=== PATIENT | female | born 1960 | race Caucasian/White ===

== ENCOUNTER → 2018-04-04 18:32 | Outpatient (CLI) | payer OTHER, SELFPAY ==
--- NOTE | 2018-04-04 | EMB_PTH ---
PATIENT: FLORIAN MARINELLI LOC: [facility] U#:[id number] AGE/SX: 65/F ROOM: RE04/04/[address]: Dr. Florentin Bundy MD : 1960 BED: DIS: SPEC #: [id number] RECD: 04/04/18 15:25 STATUS: ERICK KIESHA #: [id number] NICOLAS: 04/04/18 00:[address]: Florentin Bundy DEPT: SURGICAL PATHOLOGY RECD BY: Varun Hull Tissues: Endometrium, NOS Procedures: Surgery Specimen Level IV HEADER OPERATION: Endometrial biopsy PRE-OP DIAGNOSIS: Postmenopausal bleeding TISSUE SUBMITTED: Endometrial biopsy MICROSCOPIC DIAGNOSIS Endometrial biopsy: Strips of benign endometrial epithelium and superficial fragments of inactive endometrium consistent with atrophic endometrium, blood and mucous. SJ:don 04/06/18 COMMENT Clinical correlation and appropriate follow up are necessary. MICROSCOPIC DESCRIPTION Slides are reviewed. GROSS DESCRIPTION Received in fixative is one container labeled with the patient's name and designated EM biopsy. The specimen consists of multiple fragments of hemorrhagic soft tissue mixed with mucoid tissue that in aggregate measure 3 x 2.5 x 0.3 cm. The specimen is totally submitted in one cassette. / SJ:don 04/05/18 TC:5 CPT: 81119
== END ==
PROVIDERS: Visit Provider Obstetrics & Gynecology
DX: N95.0 Postmenopausal bleeding (principal)
CPT/HCPCS: 88305

== ENCOUNTER → 2019-04-06 | Outpatient (CLI) | payer OTHER, SELFPAY ==
--- NOTE | 2019-04-06 12:00 | EMB_PTH ---
PATIENT: FLORIAN MARINELLI LOC: [facility] U#:[id number] AGE/SX: 59/F ROOM: RE04/06/[address]: Dr. Florentin Bundy MD : 1960 BED: DIS: 04/06/2019 SPEC #: [id number] RECD: 04/06/19 13:52 STATUS: ERICK KIESHA #: [id number] NICOLAS: 04/06/19 12:[address]: Florentin Bundy DEPT: SURGICAL PATHOLOGY RECD BY: Yosi Heaton Tissues: Endometrium, NOS Procedures: Surgery Specimen Level IV HEADER OPERATION: Endometrial biopsy PRE-OP DIAGNOSIS: N95.0 TISSUE SUBMITTED: Endometrial biopsy MICROSCOPIC DIAGNOSIS Endometrium, biopsy: Scant fragments of benign endometrium with tubal metaplasia and focal cystic change. No evidence of hyperplasia. AM:don 04/07/19 MICROSCOPIC DESCRIPTION Slides are reviewed. GROSS DESCRIPTION Received in fixative is one container labeled with the patient's name and designated EM biopsy. The specimen consists of a scant amount of hemorrhagic tissue measuring 0.3 x 0.3 x 0.1 cm. The specimen is totally submitted in one cassette. / SJ:rg 04/06/19 TC:5 [facility]: [id number]
== END | disposition home or self-care (01) ==
LOC: LABSPEC 13:12
PROVIDERS: Visit Provider Obstetrics & Gynecology
DX: N85.8 Other specified noninflammatory disorders of uterus (principal); N95.0 Postmenopausal bleeding
CPT/HCPCS: 88305

== ENCOUNTER 2019-07-10 05:39 | Day surgery (SDC) | payer OTHER, SELFPAY ==
[2019-06-29 11:33] LABS: Hematocrit 43.2 % (37-47); Hemoglobin 13.9 g/dL (12.0-15.0); Mean Corp Hgb Conc 32.2 g/dL (32-36); Mean Corpuscular Volume 90.2 fL (81-99); Mean Platelet Vol. 9.5 fl (6.2-12.0); Platelet Count 206 K/mm3 (150-450); RBC Distribution Width CV 12.1 % (11.6-14.6); RBC Distribution Width SD 40.3 fl (35.1-43.9); Red Blood Count 4.79 M/mm3 (4.2-5.4); White Blood Count 5.4 K/mm3 (4.4-11.0)
[2019-06-29 11:39] LABS: International Normalized Ratio 1.1; Prothrombin Time (Protime)PT. 14.3 SECONDS (11.7-14.9)
[2019-06-29 11:40] LABS: Partial Thromboplast Time 32.3 Seconds (24.1-36.2)
[2019-06-29 11:55] LABS: Creatinine, Serum 0.89 mg/dL (0.55-1.02); EST Glomerular Filtration Rate 69 mL/min (>60); Est Glom Filt Rate - Afr Amer 83 mL/min (>60)
--- NOTE | 2019-07-09 15:33 | PCM.HP.BLA ---
History and Physical Date of Admission: 07/10/19 Surgical History and Physical Rosalba Miller, a 59 year old female 3 0 1 0 3, presents for RAVH/BSO on July 10, 2019 at 7:30. -- BUSINESS DEVELOPMENT DIRECTOR Bleeding; Uterine Fibroids -- Started with low periodic pressure about 4-5 months ago, then with taking and using multiple hormones for therapy, she started bleeding and as long as she stays balanced with her hormones, she doesn't have bleeding. Bleeding x 2 weeks which began 03/04/19 bleeding started. Rosalba claims it started suddenly and has been present 2 weeks 2 days. It occurs intermittantly. It is located in the vagina. It is located in the lower abdomen. Rosalba characterizes the quality cramping. Rosalba characterizes the quality bleeding. Severity is moderate and not improving; Additional comments are: Known 4 cm fibroid; no bleeding for many months then heavy bleeding; off hormones now.; Additional comments are: EMBx benign. MEDICATIONS HISTORY: Patient is also takin. Xanax 0.5 mg tablet, One pill by mouth once a day at ALLERGIES: No Known Allergies Infections - Chicken pox and Measles Illnesses - allergies, asthma, Hypoglycemia, Insomnia and Accidents - None Hospitalizations - see surgery Review of Systems: GENERAL - Denies fever, or chills SKIN - Denies skin changes EYES - Denies visual changes EARS - Denies difficulty hearing NOSE - Denies nasal congestion or bleeding MOUTH - Denies sore throat or difficulty swallowing NECK - Denies pain or swelling RESPIRATORY - Denies shortness of breath or wheezing CARDIOVASCULAR - Denies palpitations or chest pain GASTROINTESTINAL - Denies nausea, vomiting, diarrhea, constipation GENITOURINARY - Denies dysuria, frequency of urination, incontinence of urine MUSCULOSKELETAL - Denies joint or muscle pain NEUROLOGICAL - Denies localized numbness or weakness PSYCHIATRIC - Denies depression or anxiety ENDOCRINE - Denies heat or cold intolerance, weight loss or gain HEMATO-IMMUNOLOGIC - Denies excesive bleeding with cuts SOCIAL HISTORY: Alcohol Use - occasionally Smoking - Never Diet - no special diet Lifestyle - moderate stress lifestyle and Exercise - active Seat Belt Use - always 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 10/19/1984 2. 03/23/1988 ; Dr. Langley 3. 05/12/1991 4. 2013 [place] Removed ; Fracisco Acharya PHYSICAL EXAM BP- 142/82 Sitting, Right arm, regular cuff Weight- 149.67836 lbs Height- 68 inch BMI:22.70 CONSTITUTIONAL - NAD, well nourished, and well developed SKIN - No rash, lesions, or ulcers HEENT - Normocephalic, PERRLA, EOMI NECK - No nodes, no nuchal rigidity and thyroid normal size and texture LYMPH NODES - Palpation of lymph nodes in neck and groins within normal limits LUNGS - CTA x2 without wheezes, crackles or rales CARDIAC - Regular rate and rhythm without rubs, murmurs, or gallops BREAST - No dominant masses, no tenderness, no axillary adenopathy, no nipple discharge, no skin changes ABDOMEN - Without hepatosplenomegaly, distention, masses, rebound, or guarding; normal bowel sounds; no hernias EXTREMITIES - No edema or calf tenderness NEUROLOGICAL - Cranial nerves II-XII grossly intact PSYCHIATRIC - A and O to time, place, person, mood and affect External Genital Vagina - non-tender without lesions Urethra/Urethral Meatus - non-tender Bladder - non-tender Vagina - vaginal herrera are pink and moist without loss of rugae and no evidence of atropy Cervix - without cervical motion tenderness and has normal size and features without evident lesions Uterus - enlarged uterus 8 wks, wt 125-150 g Adnexa - clear without masses or tenderness ASSESSMENT/PLAN: 1. Leiomyoma Of Uterus, Unspecified and Postmenopausal Bleeding Discussed options for treatment including continued expectant management vs proceeding with RAVH/BSO. Desires to proceed with the surgery. Discussed RBAs and all questions answered.
[2019-07-10] VITALS (13 sets, daily range): BP systolic 96–129; BP diastolic 55–91; PULSE 63–82; RESP 14–16; TEMP 35.6–36.9; O2SAT 93–100; BMI 22.7
--- NOTE | 2019-07-10 05:52 | EKG12_ITS ---
Test Reason : PRE-OP Blood Pressure : / mmHG Vent. Rate : 065 BPM Atrial Rate : 065 BPM P-R Int : 136 ms QRS Dur : 078 ms QT Int : 404 ms P-R-T Axes : 040 077 055 degrees QTc Int : 420 ms Normal sinus rhythm Normal ECG Confirmed by ANÍBAL ROMERO, NIKO ([id number]), video effects editor LINDSAY PUENTES ([id number]) on 07/12/2019 10:51:46 AM Referred By: Florentin Bundy Confirmed By:NIKO SPANGLER MD
[2019-07-10] MEDS: Lactated Ringers 1,000 ML 100 ML IV ×2 (06:33→06:45)
--- NOTE | 2019-07-10 07:30 | HYST_PTH ---
PATIENT: FLORIAN MARINELLI [place] [facility] [place][id number] AGE/SX: 59/F ROOM: RE07/10/[address]: Dr. Florentin Bundy MD : 1960 BED: DIS: 07/11/2019 SPEC #: [id number] RECD: 07/10/19 12:17 STATUS: ERICK REOrly #: [id number] NICOLAS: 07/10/19 07:[address]: Florentin Bundy DEPT: SURGICAL PATHOLOGY RECD BY: Yosi Heaton ENTERED: 07/10/19 13:29 SP TYPE: HYSTERECT OTHR DR: Tanisha Reid PA-C Tissues: Uterus, NOS Procedures: Surgery Specimen Level V HEADER OPERATION: Lap robotic hysterectomy, BSO PRE-OP DIAGNOSIS: Leiomyoma of uterus, postmenopausal bleeding TISSUE SUBMITTED: Uterus, bilateral fallopian tubes and ovaries MICROSCOPIC DIAGNOSIS Uterus, hysterectomy: Cervix - nabothian cysts and mild chronic inflammation. Endometrium - inactive endometrium. Myometrium - leiomyomas and adenomyosis. Right ovary - no pathologic change. Right fallopian tube - hydrosalpinx. Left ovary - benign epithelial cyst. Left fallopian tube - hydrosalpinx. AM:don 07/11/19 MICROSCOPIC DESCRIPTION Slides are reviewed. GROSS DESCRIPTION Received in fixative is one container labeled with the patient's name and designated uterus. The specimen consists of a uterus with attached cervix and attached right and left fallopian tubes and ovaries. The uterus with cervix measures 9.6 x 8.5 x 4.5 cm and weighs 102 gm. The ectocervix is unremarkable. The cervical os is round in contour. The endocervical canal is grossly unremarkable and measures 4 cm in length and is grossly unremarkable. The triangular endometrial cavity measures 3.5 x 2.6 cm. The endometrium is reddish-jimenez in color and measures up to 0.2 cm in thickness. The myometrium measures 1.5 cm in average thickness and is distorted with multiple spherical rubbery nodules ranging in size from 0.5 to 3 cm. The nodules are submucosal and intramural in location. Serial sections do not reveal mass lesions. The right fallopian tube is discontinuous in its mid portion measuring 8 cm in length and 0.6 cm in average diameter and consistent with previous tubal ligation. The left ovary is similar in appearance to the right ovary and measures 3.7 x 2 x 1 cm. Serial sections reveal multiple cysts containing clear to bloody fluid ranging in size from 0.5 to 1 cm. The left fallopian tube is also discontinuous in its mid portion and similar in appearance to right fallopian tube and measures 7 cm in length and 0.8 cm in average diameter. Air Conditioning Engineer sections are submitted as follows: 1 - anterior cervix, 2 - posterior cervix, 3?&?4?- anterior uterine wall, 5 & 6 - posterior uterine wall, 7 - largest myometrial mass, 8 - second and third largest myometrial masses, 9 - right ovary and fallopian tube, 10 - left ovary and fallopian tube. / AM:don 07/10/19 TC:1 CPT: 90652
--- NOTE | 2019-07-10 07:34 | OP.PCM_ITS ---
Report of Operation Date of Procedure: 07/10/19 Pre-Operative Diagnosis: Postmenopausal Bleeding, Fibroids Post-Operative Diagnosis: Postmenopausal Bleeding, Fibroids Surgery/Procedure Performed:: Robotic Assisted Vaginal Hysterectomy and Bilateral Salpingo-Oophorectomy Description of Surgical Findings:: 11 cm uterus with normal-appearing fallopian tubes and ovaries. Evidence of prior sections. plain goods hemmer: Jeronimo Bojorquez Type of Anesthesia:: General - Endotracheal Anesthesiologist: Dionna Calhoun Specimen's removed: Uterus and bilateral fallopian tubes and ovaries Drains: Hernández to straight drain Estimated Blood Loss (mL): Minimal Fluids Replaced: Crystalloid Description of Procedure: Surgeon: Florentin Bundy MD, FACOG Indication: This is a 59 year old patient who has been having problems with extremely heavy bleeding and uterine fibroids despite being postmenopausal. Conservative measures have not been helpful. The patient has been counseled regarding the risks, benefits and alternatives of this procedure including the possibility of bleeding, infection, and injury to surrounding structures such as bowel bladder and all questions were answered. Procedure: Pt taken to the operating room where, after induction of general anesthesia, the patient was prepped and draped in the usual sterile fashion and placed on a non-slip Huggy-u-vac device. Trendelenburg test was satisfactory. Bladder was drained of urine with a Hernández catheter which was left in place. Anterior cervix grasped and cervix was dilated with small and then normal size dilators to about 3-4 mm. Uterus sounded to 9 cms. 0-Vicryl suture was placed at the 3:00 and 9:00 position of the cervix. A small Advincula Welder Production Line Gas Uterine Manipulator was then placed in the uterus and attention was turned to the laparoscopic portion of the procedure. Ropivocaine 0.5% was injected approximately 2-3 cm superior to the umbilicus and an 8 mm robotic camera port was introduced directly with intraperitoneal placement confirmed with CO2 insufflation. 8 mm robotic side ports were introduced under direct visualization approximately 10-11 cm lateral and 2 cm inferior to the umbilical port. A 5 mm left upper quadrant port was introduced and airseal insufflation with CO2 was started. The above findings were noted. Robot was docked without difficulty and attention turned to the robotic portion of the procedure. Approximately 25 cc of Ropivicaine was used. Bilateral infundibulopelvic ligaments/mesosalpinx were ligated with 35 sen bipolar coagulation to the level of the round ligament. The posterior aspect of the cervix was identified and then opened for about 1 cm using 25 watt monopolar cautery identifying the uterine manipulating device which had been placed vaginally. Bladder flap was opened and divided to the level of the round ligaments using monopolar cautery. Progressive bites were then ligated on each side of the cervix with 35 sen bipolar cautery to the uterine arteries. The anterior vaginal mucosa was entered and cervix circumscribed with monopolar cautery. Uterus and attached tubes and ovaries were removed through the vagina. Vaginal cuff was closed first with 0-Vicryl Shiloh stitches placed at each angle followed by closure of the mid-cuff with 0-Monocryl V-lock suture in two layers. Pelvis was copiously irrigated with saline and the right and left ureter was noted to peristalse. Robot was undocked and trocars were removed with as much gas as possible. Incisions were closed with 4-0 Monocryl subcuticular sutures and incisions covered with steri-strips. The patient tolerated the procedure well and was taken to the recovery room in satisfactory condition. Sponge, instruments and needle counts were all correct. There were no apparent complications of the surgery. Cefotan 2 gms IV was given prior to the procedure. Estimated Blood Loss: Minimal Specimen to Pathology: Uterus lateral fallopian tubes and ovaries Grafts/Implants Used: None - Complications None - Admit VTE Documentation VTE Present on Admission: Yes VTE Mechan Device Prophylaxis: SCD's VTE Pharm Prophylaxis ordered?: Yes
--- NOTE | 2019-07-10 07:38 | DCINST_ITS ---
Discharge Diet: No Restrictions Discharge Activity: Return to Normal Activity, May Not Drive - while taking narcotic pain medications., May Shower, May Take a Tub Bath May resume sexual activity in: 6-8 weeks Call your doctor if your incision/area has: Continuous Slow Oozing, Sudden Inc reased Bleeding, Increased Pain/ Swelling, Increased Redness, Foul Smelling Discharge Call your doctor if you observe: Fever of 101 or Higher, Inability to urinate, Inability to have a bowel movement, Using more than one pad per hour Allergies/Adverse Reactions: Allergies No Known Allergies Allergy (Verified 07/03/19 08:04) Medications to take at Discharge ALPRAZolam [Xanax] 0.25 mg PO QHS 07/03/19 Ascorbic Acid [Vitamin C] 1,000 mg PO DAILY 07/03/19 Cholecalciferol (Vitamin D3) [Vitamin D3] 2,000 unit PO DAILY 07/03/19 Cranberry Fruit Concentrate [Cran-Max] 500 mg PO DAILY 07/03/19 L.acidoph,Paracasei, B.lactis [Probiotic] 1 ea PO DAILY 07/03/19 Magnesium Glycinate [Mag Glycinate] 400 mg PO DAILY 07/03/19 Vitamin B Complex 1 ea PO DAILY 07/03/19 Docusate Sodium [Colace] 100 mg PO BID PRN PRN #90 cap 07/10/19 Oxycodone [Oxyir] 5 mg PO Q6H PRN PRN 7 Days #20 tab 07/10/19 The following prescriptions were given: Docusate Sodium [Colace] 100 mg PO BID PRN PRN #90 cap PRN Reason: Constipation Prescription Printed Oxycodone [Oxyir] 5 mg PO Q6H PRN PRN 7 Days #20 tab PRN Reason: Pain Score 6-10/10 Prescription Printed Primary Care Physician: Tanisha Reid PA-C [Primary Care Provider] - Test Results: Test results from this visit will be discussed in further detail at your follow- up appointment, if applicable. Please Follow Up With: Florentin Bundy MD When: 2 to 3 weeks
[2019-07-10] MEDS: Ropivacaine 0.5% 30 ML Vial (08:30)
[2019-07-10] MEDS: Ketorolac 30 MG/ML Syringe IV ×3 (10:32→22:20)
[2019-07-10] MEDS: Dextrose 5%-Lactated Ringers 1,000 ML 150 ML IV (15:47)
[2019-07-10] MEDS: Enoxaparin 30 MG/0.3 ML Syringe SC (17:27)
[2019-07-10] MEDS: ALPRAZolam 0.25 MG Tablet PO (22:20)
[2019-07-10] MEDS: 0.9% NaCl Peripheral Flush Adult/Peds IV (22:20)
[2019-07-11] MEDS: Ketorolac 30 MG/ML Syringe IV (03:47)
[2019-07-11 03:51] VITALS: BP 102/66; PULSE 65; RESP 18; TEMP 36.8; O2SAT 96
[2019-07-11] MEDS: Acetaminophen 500 MG Tablet 1000 MG PO (07:19)
[2019-07-11 07:20] VITALS: O2SAT 97
[2019-07-11 07:29] LABS: Hematocrit 36.1 % (37-47); Hemoglobin 11.8 g/dL (12.0-15.0); Mean Corp Hgb Conc 32.7 g/dL (32-36); Mean Corpuscular Hgb 29.5 pg (27.0-32.0); Mean Corpuscular Volume 90.3 fL (81-99); Mean Platelet Vol. 10.2 fl (6.2-12.0); Platelet Count 169 K/mm3 (150-450); RBC Distribution Width CV 12.4 % (11.6-14.6); RBC Distribution Width SD 40.8 fl (35.1-43.9); White Blood Count 8.2 K/mm3 (4.4-11.0)
[2019-07-11 07:40] VITALS: BP 108/73; PULSE 68; RESP 14; TEMP 37; O2SAT 98
[2019-07-11 07:56] LABS: Creatinine, Serum 0.76 mg/dL (0.55-1.02); EST Glomerular Filtration Rate 83 mL/min (>60); Est Glom Filt Rate - Afr Amer 100 mL/min (>60); Estimated Creatinine Clearance 81.39 ml/min
--- NOTE | 2019-07-11 08:48 | PCM.PN.OB ---
Subjective: Patient without complaints. Tolerating diet well. Minimal discomfort. Ready to go home today. - Physical Exam Vital Signs Temp Pulse Resp BP Pulse Ox 98.6 F 68 14 108/73 98 07/11/19 07:40 07/11/19 07:40 07/11/19 07:40 07/11/19 07:40 07/11/19 07:40 Oxygen Delivery Method Room Air Weight: 149 lb 11.102 oz Body Mass Index (BMI) 22.7 Intake and Output for Last 24 Hours 07/09/19 07/10/19 07/11/19 23:59 23:59 23:59 Intake Total 3132.5 / 3132.5 203.5 / 203.5 Output Total / 1974 2250 / 2250 Balance 2457.5 / 1157.5 -2046.5 / -2046.5 Laboratory Tests Past 24 Hrs 07/11/19 07/11/19 06:15 06:15 WBC 8.2 RBC 4.00 L Hgb 11.8 L Hct 36.1 L MCV 90.3 MCH 29.5 MCHC 32.7 RDW Std Deviation 40.8 RDW Coeff of Dang 12.4 Plt Count 169 MPV 10.2 Creatinine 0.76 Estim Creat Clear Calc 81.39 Est GFR (MDRD) Af Amer 100 Est GFR (MDRD) Non-Af 83 Wounds are clean, dry, intact. Good urine output. Hemoglobin and creatinine okay. Minimal vaginal bleeding. Medical Necessity - Tobacco Use Smoking Status: Never smoker Tobacco Use: Non-smoker Assessment/Plan Doing well postoperative day #1 status post robotic assisted vaginal hysterectomy and bilateral salpingo-oophorectomy. Will release to home with routine instructions. If hot flushes ensue, will consider starting low-dose hormone replacement therapy.
[2019-07-11] MEDS: Ketorolac 10 MG Tablet PO (10:00)
== END 2019-07-11 10:05 | disposition home or self-care (01) ==
LOC: SDC 05:41 → AC 05:47 → MS3 10:05
PROVIDERS: Family Provider Family Medicine; PCP Family Medicine; Referring Provider Obstetrics & Gynecology; Visit Provider Obstetrics & Gynecology
PROC: 0UT94ZZ Resection of Uterus, Percutaneous Endoscopic Approach (ICD-10-PCS; CPT 58571; principal; 2019-07-10 07:10)
DX: D25.9 Leiomyoma of uterus, unspecified (principal); N80.0 Endometriosis of uterus; L72.0 Epidermal cyst; N70.11 Chronic salpingitis; N88.8 Other specified noninflammatory disorders of cervix uteri; J45.909 Unspecified asthma, uncomplicated; G47.00 Insomnia, unspecified; Z78.0 Asymptomatic menopausal state; Z79.899 Other long term (current) drug therapy
CPT/HCPCS: 00940; 58571; 36415; 82565; 85027; 85610; 85730; 86850; 86900; 86901; 88307; 93005; J7120; A4216; J2405

== ENCOUNTER → 2022-07-01 | Outpatient (CLI) | payer OTHER, SELFPAY ==
--- NOTE | 2022-07-01 | BRBX_PTH ---
PATIENT: FLORIAN MARINELLI LOC: [facility] U#:[id number] AGE/SX: 62/F ROOM: RE07/01/[address]: Dr. Silvia Davila MD : 1960 BED: DIS: 07/01/2022 SPEC #: [id number] RECD: 07/01/22 14:00 STATUS: ERICK REOrly #: [id number] NICOLAS: 07/01/22 00:[address]: Silvia Davila DEPT: SURGICAL PATHOLOGY RECD BY: Papo Tate ENTERED: 07/02/22 08:51 SP TYPE: BREAST BX OT DR: Tanisha Reid PA-C Tissues: Left breast, NOS Procedures: Surgery Specimen Level IV HEADER OPERATION: Left breast biopsy PRE-OP DIAGNOSIS: Left breast mass TISSUE SUBMITTED: Left breast mass 9 o?clock, 2 cm from nipple ISCHEMIC TIME: 1 minute FIXATION TIME: 31 hours MICROSCOPIC DIAGNOSIS Left breast mass, 9 o?clock, 2 cm from nipple, core biopsy: Focal intraductal hyperplasia without atypia. Focal dense fibrosis. Negative for malignancy. See comment. LEIDY:don 07/03/2022 COMMENT Correlation with clinical, radiologic findings and appropriate follow up are necessary. MICROSCOPIC DESCRIPTION Slides are reviewed. GROSS DESCRIPTION Received in fixative is one container labeled with the patient's name and designated left breast. The specimen consists of multiple elongated fragments of jimenez-yellow fibroadipose tissue that in aggregate measure 1.5 x 0.5 x 0.1 cm. The entire specimen is submitted in one cassette. / LEIDY:don 07/02/2022 TC:3 CPT: 49827
--- NOTE | 2022-07-01 12:24 | US_ITS ---
STUDY: ULTRASOUND BREAST - LEFT REASON FOR EXAM: Female, 62 years old. Ultrasound guided left breast mass. TECHNIQUE: Axial and longitudinal images of the LEFT breast were performed with a high resolution ultrasound transducer. # OF IMAGES: 27 COMPARISON: None. FINDINGS: LEFT Breast: Under direct sonographic guidance, the surgeon performed 2 core biopsies of the 5 mm x 6 mm x 3 mm hypoechoic nodule at the 9 o''clock position of the breast at 2 cm from the nipple. US/US Breast Biopsy 1st Lesion IMPRESSION: Ultrasound guided core biopsy of the 5 mm x 6 mm x 3 mm nodule at the 9 o''clock position of the breast at 2 cm from nipple. ASSESSMENT CATEGORY: BIRADS Category 2: Benign. A letter regarding these results will be sent to the patient by the facility within 30 days. Electronically Signed: Connor Duran MD at 14:19 EDT ,
--- NOTE | 2022-07-01 13:05 | OP.PCM_ITS ---
Report of Operation Date of Procedure: 07/01/22 Pre-Operative Diagnosis: Left breast mass Post-Operative Diagnosis: Same Surgery/Procedure Performed:: Ultrasound-guided left breast biopsy Surgeon: Silvia Davila Type of Anesthesia: Local Specimen's removed: Left breast mass 9:00 2 cm from the nipple Estimated Blood Loss (mL): minimal Description of Procedure: Procedure: Left ultrasound-guided core biopsy Indications: 62 year-old female with the hypoechoic solid nodule at 9:00 in the left breast 2 cm from the nipple. Risk benefits were discussed the patient and she elected to proceed with ultrasound guided core biopsy with clip placement Description of procedure: Patient was brought into the ultrasound room in the left breast was marked. A timeout was completed verifying correct patient, procedure, site, specially, prior to beginning procedure. The left breast was prepped and draped in usual sterile fashion and using local anesthesia was obtained with 1% lidocaine with epi. The lesion was located with the ultrasound. Small incision was made with 11 blade to introduced the mammotome through the skin. Under ultrasound guidance multiple core samples were obtained using then 13-gauge mammotome and sent in formalin for pathology. The mammotome mammostar clip was then deployed into the biopsy cavity under ultrasound guid ance and a picture was taken. Upon completion procedure hemostasis was obtained and a Steri-Strip and OpSite were placed. The patient tolerated the procedure well and was discharged from the breast imaging department good condition. Complications none
== END | disposition home or self-care (01) ==
PROVIDERS: PCP Family Medicine; Visit Provider Surgery
DX: N63.20 Unspecified lump in the left breast, unspecified quadrant (principal)
CPT/HCPCS: 19083; 88305

== ENCOUNTER → 2023-01-18 | Outpatient (CLI) | payer OTHER, SELFPAY ==
--- NOTE | 2023-01-18 15:11 | US_ITS ---
STUDY: ULTRASOUND BREAST - LEFT REASON FOR EXAM: Female, 63 years old. Status post left breast biopsy. TECHNIQUE: Axial and longitudinal images of the LEFT breast were performed with a high resolution ultrasound transducer. # OF IMAGES: 21 COMPARISON: Comparison is made with prior mammogram of the left breast in July 26, 2022. FINDINGS: LEFT Breast: Stable 7 mm x 6 mm x 6 mm isoechoic nodule at the 9:00 position of the breast at 2 cm from nipple. A tissue clip marker is seen within. US/Breast Limited Unilateral IMPRESSION: Stable examination. A tissue clip marker is seen within it. ASSESSMENT CATEGORY: BIRADS Category 2: Benign. A letter regarding these results will be sent to the patient by the facility within 30 days. Electronically Signed: Connor Duran MD at 15:51 EDT ,
== END | disposition home or self-care (01) ==
PROVIDERS: PCP Family Medicine; Referring Provider Surgery; Visit Provider Surgery
DX: N63.22 Unspecified lump in the left breast, upper inner quadrant (principal)
CPT/HCPCS: 76642